=== PATIENT | male | born 2000 | race African-American/Black ===

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

== ENCOUNTER 2024-03-15 17:11 | Emergency (ER) | payer MEDICAID ==
[~2024-03-15] VITALS: Ht 177.8 cm; Wt 72.6 kg
[2024-03-15 17:41] VITALS: TEMP 98.3; O2SAT 100
[2024-03-15] MEDS ORDERED: LIDO700A30 TP (20:20)
[2024-03-15] MEDS ORDERED: CYCL10TA21 MT (20:20)
[2024-03-15 20:37] VITALS: BP 110/69; PULSE 56; RESP 16; O2SAT 100
== END 2024-03-15 20:38 | disposition home or self-care (01) ==
LOC: ER 17:11
DX: M62.838 Other muscle spasm (principal); M54.9 Dorsalgia, unspecified; M25.512 Pain in left shoulder
CPT/HCPCS: 99283